=== PATIENT | female | born 1990 | race Caucasian/White ===

== ENCOUNTER 2017-07-11 21:03 | Emergency (ER) | payer MEDICAID ==
[2017-07-11 21:22] VITALS: BP 116/78; PULSE 101; RESP 18; TEMP 98.3; O2SAT 100
[2017-07-11] MEDS ORDERED: Lidocaine Hydrochloride 5 ML INJ ONE (21:56)
--- NOTE | 2017-07-11 22:29 | C.PDOC ---
History Of Present Illness 26 year old female presents to the ER with a complaint of a tender, swollen mass to the right groin area for the past 2 weeks. Patient reports she has been applying warm compresses to the area with no relief. Denies fever or drainage. Time Seen by Provider: 07/11/17 21:27 Chief Complaint (Nursing): Abnormal Skin Integrity History Per: Patient History/Exam Limitations: no limitations Onset/Duration Of Symptoms: Days Current Symptoms Are (Timing): Still Present Quality Of Symptoms: Painful. denies: Draining Recent travel outside of the [place]: No Past Medical History Reviewed: Historical Data, Nursing Documentation, Vital Signs Vital Signs: Last Vital Signs Temp 98.3 F 07/11/17 21:19 Pulse 101 H 07/11/17 21:19 Resp 18 07/11/17 21:19 BP 116/78 07/11/17 21:19 Pulse Ox 100 07/11/17 23:50 Family History: States: Unknown Family Hx - Social History Hx Alcohol Use: No Hx Substance Use: No Review Of Systems Constitutional: Negative for: Fever, Chills Genitourinary: Positive for: Other (painful mass to right groin) Skin: Negative for: Other (Fluctuance, Drainage) Physical Exam - Physical Exam Appears: Non-toxic Skin: Warm, Dry Head: Atraumatic, Normacephalic Eye(s): bilateral: Normal Inspection Pelvic: Other (3x2cm tender fluctuant mass to right inguinal area. No streaking or drainage.) Neurological/Psych: Oriented x3, Normal Speech ED Course And Treatment O2 Sat by Pulse Oximetry: 100 (Room air) Pulse Ox Interpretation: Normal Progress Note: Motrin administered for pain. Patient tolerated wound repair without any difficulty. Patient given proper wound care instructions and advised to follow up for wound check or return if signs of infection arise. - Incision & Drainage Of Abscess Anesthesia: Lidocaine 1% Prep Used: Sterile Water Procedure: Incised W/Scalpel Blade#: (15), Drained Pus, Irrigated Cavity W/ Saline, Probed To Break Up Loculations, Packed W/Gauze (and dressed.Pt tolerated well) Disposition - Disposition Referrals: Clinic,Med Surg [Primary Care Provider] - PMD, private MD [Other] Disposition: HOME/ ROUTINE Disposition Time: 22:26 Condition: STABLE Additional Instructions: Take Meds as directed Follow up with PMD in 2 days for wound check Return to ER if worse Prescriptions: Cephalexin [cephalexin] 500 mg PO BID #20 cap Ibuprofen [Motrin] 600 mg PO Q6H #20 tab Sulfamethoxazole/Trimethoprim [Bactrim DS 800 mg-160 mg] 1 tab PO BID #14 tab Instructions: Abscess (ED) Forms: [facility] (Luxembourgish), Work Excuse - Clinical Impression Clinical Impression: Abscess - 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 - Scribe Statement The provider has reviewed the documentation as recorded by the Scribclemencia Gtz All medical record entries made by the Wilal were at my direction and personally dictated by me. I have reviewed the chart and agree that the record accurately reflects my personal performance of the history, physical exam, medical decision making, and the department course for this patient. I have also personally directed, reviewed, and agree with the discharge instructions and disposition.
== END 2017-07-11 22:39 | disposition home or self-care (01) ==
LOC: C.ER 21:03 → SUPCPDRO 21:03 → C.ER 22:39
DX: L02.214 Cutaneous abscess of groin (principal)

== ENCOUNTER 2017-07-13 16:50 | Emergency (ER) | payer MEDICAID ==
[2017-07-13 17:06] VITALS: TEMP 98.8
--- NOTE | 2017-07-13 18:12 | C.PDOC ---
Time Seen by Provider: 07/13/17 17:44 Chief Complaint (Nursing): Wound Check History Per: Patient Onset/Duration Of Symptoms: Days Ago (2), Abscess Current Symptoms Are (Timing): Better Location Of Injury: Right: Thigh (upper) Quality Of Symptoms: Painful, Draining Severity: Moderate Additional History Per: Prior Records Past Medical History Reviewed: Historical Data, Nursing Documentation, Vital Signs Vital Signs: Last Vital Signs Temp 98.8 F 07/13/17 17:02 Pulse 95 H 07/13/17 17:02 Resp 18 07/13/17 17:02 BP 117/77 07/13/17 17:02 Pulse Ox 97 07/13/17 17:02 - Medical History PMH: No Chronic Diseases Surgical History: No Surg Hx Family History: States: Unknown Family Hx - Social History Hx Alcohol Use: Yes Hx Substance Use: No - Immunization History Hx Tetanus Toxoid Vaccination: No Hx Influenza Vaccination: No Hx Pneumococcal Vaccination: No Review Of Systems Except As Marked, All Systems Reviewed And Found Negative. Constitutional: Negative for: Fever, Weakness Cardiovascular: Negative for: Chest Pain Respiratory: Negative for: Shortness of Breath Gastrointestinal: Negative for: Abdominal Pain Neurological: Negative for: Weakness, Numbness Physical Exam - Physical Exam Appears: Non-toxic, No Acute Distress Skin: Normal Color, Warm, Dry, No Rash Head: Atraumatic, Normacephalic Eye(s): bilateral: Normal Inspection, PERRL, EOMI Neck: Normal ROM, Supple Gastrointestinal/Abdominal: Soft, No Tenderness Extremity: Normal ROM, No Calf Tenderness, No Swelling, Other (Abscess in right upper thigh with packing in place) Neurological/Psych: Oriented x3, Normal Motor, Normal Sensation ED Course And Treatment O2 Sat by Pulse Oximetry: 97 Pulse Ox Interpretation: Normal Progress Note: Packing was removed and wound re-dressed. Disposition Counseled Patient/Family Regarding: Diagnosis, Need For Followup - Disposition Referrals: Simón rAvizu MD [Medical Doctor] - Disposition: HOME/ ROUTINE Disposition Time: 18:12 Condition: STABLE Additional Instructions: Continue your antibiotics. Follow up with your doctor. Return to the ER if you develop fever, redness, worsening of symptoms or if you have any other concerns. Instructions: Abscess Follow-up (ED) Forms: [employer] (Romansh) - Clinical Impression Clinical Impression: Encounter for recheck of abscess following incision and drainage
[2017-07-13 18:34] VITALS: BP 123/75; PULSE 78; RESP 16; O2SAT 98
== END 2017-07-13 18:33 | disposition home or self-care (01) ==
LOC: C.ER 16:50
DX: Z51.89 Encounter for other specified aftercare (principal)

== ENCOUNTER 2017-09-18 15:04 | Emergency (ER) | payer MEDICAID ==
[2017-09-18 15:27] VITALS: TEMP 98; O2SAT 98
[2017-09-18] MEDS ORDERED: DiphenhydrAMINE 50 mg/ml Inj IVP STA (16:02)
--- NOTE | 2017-09-18 16:07 | C.PDOC ---
History Of Present Illness Patient is a 27 y/o female who presents to the ED with a complaint of headache associated with dizziness, nausea, and photophobia for the last 2 days. Patient describes headache onset was gradual in the frontal region, denying any thunderclap association. Patient notes headache is not the first, worst, or longest-lasting headache she's experienced. Denies taking any medications for relief of symptoms. No other physical complaints at this time. Time Seen by Provider: 09/18/17 15:42 Chief Complaint (Nursing): Headache History Per: Patient History/Exam Limitations: no limitations Onset/Duration Of Symptoms: Days (2), Gradual Current Symptoms Are (Timing): Still Present Associated Symptoms: Photophobia, Nausea, Other (dizziness) Recent travel outside of the [place]: No Past Medical History Reviewed: Historical Data, Nursing Documentation, Vital Signs Vital Signs: Last Vital Signs Temp 98 F 09/18/17 15:24 Pulse 78 09/18/17 17:00 Resp 18 09/18/17 17:00 BP 117/85 09/18/17 17:00 Pulse Ox 98 09/18/17 18:37 - Medical History PMH: No Chronic Diseases Surgical History: No Surg Hx Family History: States: No Known Family Hx - Social History Hx Tobacco Use: Yes (light smoker) Hx Alcohol Use: Yes Hx Substance Use: No - Immunization History Hx Tetanus Toxoid Vaccination: No Hx Influenza Vaccination: No Hx Pneumococcal Vaccination: No Review Of Systems Eyes: Positive for: Other (photophobia) Gastrointestinal: Positive for: Nausea Neurological: Positive for: Headache Physical Exam - Physical Exam Appears: Well, Non-toxic, No Acute Distress Skin: Normal Color, Warm, Dry Head: Atraumatic, Normacephalic Eye(s): bilateral: Normal Inspection, PERRL, EOMI Oral Mucosa: Moist Chest: Symmetrical Cardiovascular: Rhythm Regular, No Murmur Respiratory: Normal Breath Sounds, No Rales, No Rhonchi, No Wheezing Gastrointestinal/Abdominal: Soft, No Tenderness Neurological/Psych: Oriented x3, Normal Speech, Normal Cognition Additional Physical Exam Comments: Assessment: headache ED Course And Treatment - Laboratory Results Result Diagrams: 09/18/17 16:52 09/18/17 16:52 ECG: Interpreted By Me, Viewed By Me ECG Rhythm: Sinus Rhythm, Nonspecific Changes Interpretation Of ECG: normal intervals, normal axis, t wave flattening at leads III and aVF Rate From EC (bpm) O2 Sat by Pulse Oximetry: 98 - CT Scan/US Head CT Other Rad Studies (CT/US): Interpreted By Me, Read By Radiologist CT/US Interpretation: PROCEDURE: CT HEAD WITHOUT CONTRAST. HISTORY: Headache. COMPARISON: None available. TECHNIQUE: Axial computed tomography images were obtained through the head/brain without intravenous contrast. Radiation dose: Total exam DLP = 824.9 mGy-cm. This CT exam was performed using one or more of the following dose reduction techniques: Automated exposure control, adjustment of the mA and/or kV according to patient size, and/ or use of iterative reconstruction technique. FINDINGS: HEMORRHAGE: No intracranial hemorrhage. BRAIN: No mass effect or edema. No atrophy or chronic microvascular ischemic changes. VENTRICLES: Unremarkable. No hydrocephalus. CALVARIUM: Unremarkable. PARANASAL SINUSES: Unremarkable as visualized. No significant inflammatory changes. MASTOID AIR CELLS: Unremarkable as visualized. No inflammatory changes. OTHER FINDINGS: None. IMPRESSION: Normal CT of the Head. Progress Note: Head CT, EKG, blood work ordered. Benadryl, compazine, POC urine administered. Patient eloped from ER; attempted calling cell phone without answer. Diagnosis: dizziness and UTI. Medical Decision Making Medical Decision Making: Upon reevaluating patient, she is noted to have eloped from department. Disposition - Disposition Disposition: ELOPEMENT - ER ONLY Disposition Time: 18:32 Condition: STABLE Forms: [facility] (Kyrgyz) - Clinical Impression Clinical Impression: Dizziness, UTI (urinary tract infection) - Scribe Statement The provider has reviewed the documentation as recorded by the Scribe Maribel Markham All medical record entries made by the Scribe were at my direction and personally dictated by me. I have reviewed the chart and agree that the record accurately reflects my personal performance of the history, physical exam, medical decision making, and the department course for this patient. I have also personally directed, reviewed, and agree with the discharge instructions and disposition.
[2017-09-18 16:54] LABS: BASO # 0.1 K/uL (0.0-0.2); EOS # 0.4 K/uL (0.0-0.7); EOS % 2.9 % (0.0-4.0); HEMOGLOBIN 12.1 g/dL (11.0-16.0); LYMPH # 3.9 K/uL (1.0-4.3); LYMPH % 27.8 % (20.0-40.0); MEAN CORPUSCULAR HEMOGLOBIN 28.6 pg (27.0-31.0); MEAN CORPUSCULAR HGB CONC 34.1 g/dL (33.0-37.0); MEAN PLATELET VOLUME 9.2 fL (7.2-11.7); MONO # 0.6 K/uL (0.0-0.8); MONO % 4.5 % (0.0-10.0); NEUT % 63.8 % (50.0-75.0); RBC 4.23 Mil/uL (3.80-5.20); WHITE BLOOD COUNT 14.1 K/uL (4.8-10.8)
[2017-09-18] MEDS ORDERED: DiphenhydrAMINE 50 mg/ml Inj ONE (17:01)
[2017-09-18 17:09] VITALS: BP 117/85; PULSE 78; RESP 18
[2017-09-18 17:09] LABS: ALBUMIN 3.9 g/dL (3.5-5.0); ALT/SGPT 17 U/L (9-52); AST/SGOT 24 U/L (14-36); BLOOD UREA NITROGEN 9 mg/dL (7-17); GFR AFRICAN-AMERICAN > 60; GFR NON-AFRICAN AMERICAN > 60
--- NOTE | 2017-09-18 17:37 | CT ---
PROCEDURE: CT HEAD WITHOUT CONTRAST. HISTORY: Headache COMPARISON: None available. TECHNIQUE: Axial computed tomography images were obtained through the head/brain without intravenous contrast. Radiation dose: Total exam DLP = 824.9 mGy-cm. This CT exam was performed using one or more of the following dose reduction techniques: Automated exposure control, adjustment of the mA and/or kV according to patient size, and/or use of iterative reconstruction technique. FINDINGS: HEMORRHAGE: No intracranial hemorrhage. BRAIN: No mass effect or edema. No atrophy or chronic microvascular ischemic changes. VENTRICLES: Unremarkable. No hydrocephalus. CALVARIUM: Unremarkable. PARANASAL SINUSES: Unremarkable as visualized. No significant inflammatory changes. MASTOID AIR CELLS: Unremarkable as visualized. No inflammatory changes. OTHER FINDINGS: None. IMPRESSION: Normal CT of the Head.
[2017-09-18 18:05] LABS: SQUAMOUS EPITHIAL 19 /hpf (0-5); URINE BACTERIA RARE (<OCC); URINE BILIRUBIN NEGATIVE (NEGATIVE); URINE BLOOD 1+ (NEGATIVE); URINE CLARITY Hazy (Clear); URINE COLOR Yellow (YELLOW); URINE GLUCOSE (UA) NORMAL (Normal); URINE LEUKOCYTE ESTERASE 3+ Leu/uL (Negative); URINE PROTEIN NEGATIVE (NEGATIVE); URINE UROBILINOGEN NORMAL mg/dL (0.2-1.0)
[2017-09-18] MEDS ORDERED: Tmp-Smz 800 mg-160 mg DS Tab PO STA (18:11)
--- NOTE | 2017-09-20 02:04 | CARD ---
APPROVED REPORT EKG Measurement Heart [id number] HI [id number] [id number] <Conclusion> Normal sinus rhythm Normal ECG
== END 2017-09-18 18:45 | disposition left against medical advice (07) ==
LOC: C.ER 15:04
DX: N39.0 Urinary tract infection, site not specified (principal); R42 Dizziness and giddiness
CPT/HCPCS: 70450; 80053; 81001; 85025; 93005; 96374; 96375; 99285; J0780; J1200

== ENCOUNTER 2018-06-16 19:33 | Emergency (ER) | payer MEDICAID ==
[2018-06-16 19:45] VITALS: BP 140/80; PULSE 100; RESP 20; TEMP 98.2; O2SAT 98
--- NOTE | 2018-06-16 21:04 | C.PDOC ---
History Of Present Illness 27 year old female presents to the ED for evaluation of sore throat which began around two weeks ago. Patient has tried taking multiple [id number] medications such as Mucinex, Dulcolax, and Theraflu without relief. Patient reports cough that is productive of phlegm, states her throat feels inflamed and reports pain with swallowing. She denies throat closing sensation, difficulty breathing, significant past medical history or any known allergies to medications. Chief Complaint (Nursing): Cough, Cold, Congestion History Per: Patient History/Exam Limitations: no limitations Onset/Duration Of Symptoms: Other (two weeks ) Current Symptoms Are (Timing): Still Present Location Of Pain: Throat Sick Contacts (Context): None Associated Symptoms: Sore Throat, Cough, Sputum Additional History Per: Patient Past Medical History Reviewed: Historical Data, Nursing Documentation, Vital Signs Vital Signs: Last Vital Signs Temp 98.2 F 06/16/18 19:42 Pulse 100 H 06/16/18 19:42 Resp 20 06/16/18 19:42 BP 140/80 06/16/18 19:42 Pulse Ox 98 06/16/18 19:42 - Medical History PMH: No Chronic Diseases Surgical History: No Surg Hx Family History: States: Unknown Family Hx - Social History Hx Tobacco Use: Yes (light smoker) Hx Alcohol Use: Yes Hx Substance Use: No - Immunization History Hx Tetanus Toxoid Vaccination: No Hx Influenza Vaccination: No Hx Pneumococcal Vaccination: No Review Of Systems Constitutional: Negative for: Fever, Chills, Weakness Eyes: Negative for: Redness, Other (scleral icterus ) ENT: Positive for: Throat Pain. Negative for: Mouth Swelling Cardiovascular: Negative for: Chest Pain Respiratory: Positive for: Cough, Sputum. Negative for: Shortness of Breath Gastrointestinal: Negative for: Nausea, Vomiting, Diarrhea Genitourinary: Negative for: Dysuria, Hematuria Musculoskeletal: Negative for: Back Pain Skin: Negative for: Rash Neurological: Negative for: Weakness, Numbness, Dizziness Physical Exam - Physical Exam Appears: Well, Non-toxic, No Acute Distress Skin: Normal Color, Warm, No Rash Head: Atraumatic, Normacephalic Eye(s): bilateral: Normal Inspection, PERRL, EOMI Ear(s): Bilateral: Normal (no drainage ) Nose: Other (rhinorrhea, mild nasal congestion ) Oral Mucosa: Moist Throat: Normal (no swelling or injection ), No Exudate, Other (airway patent ) Neck: Normal ROM, Supple Chest: Symmetrical Respiratory: No Accessory Muscle Use, No Stridor, Other (normal inspiratory effort ) Gastrointestinal/Abdominal: Soft, No Distention Back: Other (ambulating with steady upright gait ) Extremity: Normal ROM Extremity: Bilateral: Atraumatic Pulses: Left Radial: Normal, Right Radial: Normal Neurological/Psych: Oriented x3, Normal Cranial Nerves (grossly intact ) ED Course And Treatment O2 Sat by Pulse Oximetry: 98 (on RA ) Pulse Ox Interpretation: Normal Medical Decision Making Medical Decision Making: Patient reports throat feels inflamed and is having difficulty swallowing. Rapid strep test ordered to test for viral etiology. Results were negative. Patient is resting comfortably, showing no signs of distress and is stable for discharge. Patient is advised to follow up with her PMD within 1-2 days for further evaluation. 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 - Scribe Statement The provider has reviewed the documentation as recorded by the Scribe (Marlene Patel) All medical record entries made by the Scribe were at my direction and personally dictated by me. I have reviewed the chart and agree that the record accurately reflects my personal performance of the history, physical exam, medical decision making, and the department course for this patient. I have also personally directed, reviewed, and agree with the discharge instructions and disposition.
== END 2018-06-16 21:17 | disposition home or self-care (01) ==
LOC: C.ER 19:33
DX: J02.9 Acute pharyngitis, unspecified (principal); F17.210 Nicotine dependence, cigarettes, uncomplicated